=== PATIENT | male | born 1940 | race Asian ===

== ENCOUNTER 2019-06-14 17:56 | Emergency (ER) | payer MEDICARE, BC ==
[~2019-06-14] VITALS: Ht 172.7 cm; Wt 80.0 kg
[2019-06-14] MEDS ORDERED: ONDANSETRON HCL 4MG/2ML INJ IV STA (18:30)
[2019-06-14] MEDS ORDERED: MORPHINE SULFATE 4 MG/ML CPJ (NOT FOR IM USE) IV STA (18:30)
[2019-06-14] MEDS ORDERED: SODIUM CHLORIDE 0.9% 1,000 ML IV ONE (18:59)
[2019-06-14 19:10] LABS: BASOPHILS % 0.2 % (0.0-2.0); EOSINOPHILS % 0.4 % (0.0-5.0); HEMATOCRIT. 35.4 % (42.0-52.0); HEMOGLOBIN. 12.1 g/dL (14.0-18.0); MEAN CORPUSCULAR HEMOGLOBIN 33.8 pg (28.0-32.0); MEAN CORPUSCULAR VOLUME 98.7 fL (80.0-94.0); MEAN PLATELET VOLUME 7.6 fl (7.4-10.4); NEUTROPHILS % 83.4 % (40.0-76.0); PLATELET 139 x1000/uL (130-400); RED BLOOD CELL COUNT 3.59 mill/uL (4.7-6.1)
[2019-06-14 19:17] LABS: INR 1.1; PROTHROMBIN TIME 12.4 sec (9.6-11.0)
[2019-06-14 19:19] LABS: CHLORIDE 113 mEq/L (98-107)
[2019-06-14] MEDS ORDERED: MORPHINE SULFATE 4 MG/ML CPJ (NOT FOR IM USE) IV ONE (23:00)
[2019-06-14] MEDS ORDERED: IOHEXOL-350 100 ML BOTTLE ONE (23:30)
[2019-06-15 07:20] VITALS: BP 143/32
== END 2019-06-15 07:36 | disposition left against medical advice (07) ==
LOC: ER 17:56 → EDBEDREQTM 23:16 → EDBEDREQ 23:16 → ER 06-15 07:36 → CANRESERV 06-15 08:09 → ENRESERV 06-15 08:09 → CANBEDREQ 06-15 08:31
DX: L76.32 Postprocedural hematoma of skin and subcutaneous tissue following other procedure (principal); Y83.8 Other surgical procedures as the cause of abnormal reaction of the patient, or of later complication, without mention of misadventure at the time of the procedure; Y82.8 Other medical devices associated with adverse incidents; Y92.238 Other place in hospital as the place of occurrence of the external cause; I12.0 Hypertensive chronic kidney disease with stage 5 chronic kidney disease or end stage renal disease; E11.22 Type 2 diabetes mellitus with diabetic chronic kidney disease; N18.6 End stage renal disease; Z99.2 Dependence on renal dialysis; Z94.0 Kidney transplant status
CPT/HCPCS: 36415; 73706; 76857; 80053; 82962; 85025; 85610; 93005; 96374; 96375; 96376; 99285; J2270; J2405; J7030; Q9967